=== PATIENT | female | born 1950 | race Hispanic/Latino ===

== ENCOUNTER → 2024-05-02 | Outpatient (CLI) | payer OTHER | END | disposition home or self-care (01) | LOC: RAH 12:54 | PROVIDERS: ATTEND Internal Medicine | DX: I08.0 Rheumatic disorders of both mitral and aortic valves (principal); I65.21 Occlusion and stenosis of right carotid artery; R42 Dizziness and giddiness; R01.1 Cardiac murmur, unspecified | CPT/HCPCS: 93306; 93880 ==

== ENCOUNTER → 2024-07-13 | Outpatient (CLI) | payer OTHER ==
[2024-07-13 16:41] LABS: HEMOGLOBIN A1C 8.3 % (4.0-6.0)
[2024-07-13 17:10] LABS: ALBUMIN 4.4 g/dL (3.5-5.0); BILIRUBIN,TOTAL 0.2 mg/dL (0.2-1.0); CREATININE 0.6 mg/dL (0.5-1.0); POTASSIUM 4.7 mmol/L (3.5-5.1); TOTAL PROTEIN, SERUM 7.5 g/dL (6.0-8.3)
== END | disposition home or self-care (01) ==
LOC: LAB 11:46
PROVIDERS: ATTEND Student in an Organized Health Care Education/Training Program
DX: I10 Essential (primary) hypertension (principal); E78.5 Hyperlipidemia, unspecified; Z79.899 Other long term (current) drug therapy
CPT/HCPCS: 36415; 80053; 80061; 83036

== ENCOUNTER → 2024-07-14 | Outpatient (CLI) | payer OTHER | END | disposition home or self-care (01) | LOC: SHCH 10:53 | PROVIDERS: ATTEND Student in an Organized Health Care Education/Training Program | DX: R09.89 Other specified symptoms and signs involving the circulatory and respiratory systems (principal); R07.9 Chest pain, unspecified | CPT/HCPCS: 93306; 93880 ==

== ENCOUNTER → 2024-07-23 | Outpatient (CLI) | payer OTHER ==
[~2024-07-23] MED LIST: IOHEXOL 350 MG/ML 100ML INFUS..BTL IV ONE
--- NOTE | 2024-07-23 12:39 | HMCIMG ---
CT CARDIAC ANGIO W/CONT. CCTA REASON: CHEST PAIN COMPARISON: None TECHNIQUE: Images are obtained through the heart in the axial plane before and during bolus IV contrast infusion, 100 cc Omnipaque 350. 2-D and 3-D multiplanar reconstruction images were then performed. The injection had to be repeated once due to motion artifact on the first sequence, total contrast volume was 200 cc. FINDINGS: This dictation is for the noncardiac findings only. Cardiac and coronary artery findings are reported separately. Visualized portions of the lungs are clear. There is normal-appearing pulmonary interstitium. There is no hilar or mediastinal lymphadenopathy. Chest wall structures appear unremarkable. IMPRESSION: 1. Unremarkable noncardiac portions of CT cardiac angiography.
== END | disposition home or self-care (01) ==
LOC: RAH 10:13
PROVIDERS: ATTEND Student in an Organized Health Care Education/Training Program
DX: R07.9 Chest pain, unspecified (principal)
CPT/HCPCS: 75574; Q9967

== ENCOUNTER → 2025-04-05 | Outpatient (CLI) | payer OTHER ==
[~2025-04-05] MED LIST changes: +AMLO-257 PO; +ASPI-1005 PO; +ATOR40TA69 PO; +BYDUREON SQ; +CHOL100053 PO; +CYAN-35 PO; +EMPA25TA PO; +INSU3INS3 SQ; -IOHEXOL 350 MG/ML 100ML INFUS..BTL IV ONE; +LOSA1TAB42 PO; +METF-446 PO
--- NOTE | 2025-04-05 14:11 | HMCIMG ---
US ARTERIAL BILAT LOW EXT DUPL HISTORY: Type 2 diabetes mellitus with diabetic peripheral angiopathy TECHNIQUE: Duplex Doppler evaluation of the arteries of both legs performed. FINDINGS: Grayscale images revealed intimal calcifications throughout both lower extremities. Peak systolic velocities and wave patterns were documented, as follows: RIGHT LEG Common femoral: 98 cm/s biphasic Superficial femoral prox: 81 cm/s biphasic Superficial femoral mid: 77 cm/s biphasic Superficial femoral distal: 81 cm/s biphasic Popliteal: 59 cm/s biphasic Posterior tibial: 59 cm/s biphasic Dorsalis pedis: 68 cm/s biphasic LEFT LEG Common femoral: 122 cm/s biphasic Superficial femoral prox: 110 cm/s biphasic Superficial femoral mid: 112 cm/s biphasic Superficial femoral distal: 97 cm/s biphasic Popliteal: 91 cm/s biphasic Posterior tibial: 64 cm/s biphasic Dorsalis pedis: 82 cm/s biphasic IMPRESSION: Normal bilateral lower extremity arterial Doppler. There is minimal atherosclerotic changes.
== END | disposition home or self-care (01) ==
LOC: RAH 12:04
PROVIDERS: ATTEND Internal Medicine
DX: E11.51 Type 2 diabetes mellitus with diabetic peripheral angiopathy without gangrene (principal)
CPT/HCPCS: 93925

== ENCOUNTER → 2025-04-16 | Outpatient (CLI) | payer OTHER ==
--- NOTE | 2025-04-18 14:42 | HMCIMG ---
CLINICAL INDICATION: Asymptomatic menopausal state COMPARISON: None available TECHNIQUE: Bone densitometry is performed of the lumbar spine and left hip. FINDINGS: Total BMD of lumbar spine is 0.777 g/cm2 with a T-score of -2.5 and Z-score is 0.0. Total BMD of left hip is 0.678 g/cm2 with a T-score of -2.1 and Z-score is -0.3. FRAX SCORE: The 10 year fracture risk for a major osteoporotic fracture and hip fracture not reported T score at or below -2.5 IMPRESSION: 1. Osteoporosis of lumbar spine 2. Osteopenia of the left hip 3. I would recommend follow-up in 13 months. World Health Organization criteria for BMD interpretation classify patients as Normal (T-score at or above -1.0), Osteopenic (T-score between -1.0 and -2.5), or Osteoporotic (T-score at or below -2.5). FRAX SCORE: A. All treatment decisions require clinical judgment and consideration of individual patient factors, including patient preferences, comorbidities, previous drug use, risk factors not captured in the FRAX model (e.g., frailty, falls, vitamin D deficiency, increased bone turnover, interval significant decline in bone density) and possible [id number]-estimation of fracture risk by FRAX. B. In addition, the NOF Guide recommends that FDA-approved medical therapies be considered in postmenopausal women and men age greater than or equal to 50 years with a: i. Hip or vertebral (clinical or morphometric) fracture. ii. T-score of less than or equal to -2.5 at the spine or hip. iii. Ten-year fracture probability by FRAX of greater than or equal to 3% for hip fracture of greater than or equal to 20% for major osteoporotic fracture.
== END | disposition home or self-care (01) ==
LOC: RAH 07:26
PROVIDERS: ATTEND Internal Medicine
DX: M81.0 Age-related osteoporosis without current pathological fracture (principal); M85.88 Other specified disorders of bone density and structure, other site; Z78.0 Asymptomatic menopausal state
CPT/HCPCS: 77080